=== PATIENT | female | born 1970 | race Caucasian/White ===

== ENCOUNTER 2016-10-26 15:09 | Emergency (ER) | payer OTHER ==
[2016-10-26 15:42] LABS: BILIRUBIN NEGATIVE (NEGATIVE); BLOOD TRACE-LYSED Ery/uL (NEGATIVE); CLARITY CLEAR (CLEAR); COLOR YELLOW (YELLOW); GLUCOSE (U) NORMAL (NORMAL); KETONE (U) TRACE mg/dL (NEGATIVE); LEUKOCYTES NEGATIVE Leu/uL (NEGATIVE); NITRITE NEGATIVE (NEGATIVE); PROTEIN NEGATIVE (NEGATIVE); SPECIFIC GRAVITY 1.025 (1.001-1.030); pH 5.5 (5.0-9.0)
[2016-10-26 15:44] LABS: URINARY RBC RARE; URINARY WBC RARE
[2016-10-26 15:52] LABS: BASOPHIL 0.3 % (0-2); EOSINOPHIL 1.5 % (0-5); HCT 41.4 % (37.0-47.0); HGB 14.2 g/dl (12.5-16.0); LYMPHOCYTE 28.2 % (15-48); MCH 31.4 pg (25.0-31.0); MCHC 34.3 g/dL (32.0-36.0); MCV 91.6 fL (78.0-100.0); MONOCYTE 5.4 % (0-12); MPV 10.1 fL (6.0-9.5); NEUTROPHIL 64.6 % (41-80); PLT 224 K/uL (150-400); RBC 4.52 M/uL (4.20-5.40); RDW 12.2 % (11.5-14.0); WBC 10.9 K/uL (4.0-10.5)
[2016-10-26 16:26] LABS: ALBUMIN 4.3 g/dL (3.5-5.0); BILIRUBIN - TOTAL 0.3 mg/dL (0.1-1.0); CREATININE 0.8 mg/dL (0.5-1.0); GLOBULIN (CALCULATION) 2.6 g/dL (2.2-4.2); POTASSIUM 4.2 mmol/L (3.5-5.1); TOTAL PROTEIN 6.9 g/dL (6.4-8.3)
== END 2016-10-26 18:05 | disposition home or self-care (01) ==
LOC: FER 15:09
PROVIDERS: Emergency Medicine
DX: K59.00 Constipation, unspecified (principal); R35.0 Frequency of micturition; E03.9 Hypothyroidism, unspecified
CPT/HCPCS: 36415; 74000; 80053; 81001; 85025; J2212